=== PATIENT | male | born 1945 | race Two or more races ===

== ENCOUNTER 2019-03-16 10:15 | Observation (INO) | payer OTHER, MEDICAID ==
[2019-03-16] VITALS (21 sets, daily range): BP systolic 133–171; BP diastolic 78–97; PULSE 60–92; RESP 16–22; Ht 165.1 cm; Wt 65.1 kg
[~2019-03-16] VITALS: Ht 165.1 cm; Wt 65.1 kg
[~2019-03-16 10:15] MED LIST: BENA1TAB2 PO; CEFAZOLIN 2 GM/50 ML (PMX) 50 ML IVPB SCH; PROSTATE MEDS; SITA1TAB3 PO
[2019-03-16] MEDS ORDERED: SIMV10TA PO (10:39)
[2019-03-16] MEDS ORDERED: TAMS-14 PO (10:39)
[2019-03-16] MEDS ORDERED: BENA10TA4 PO (10:40)
[2019-03-16] MEDS ORDERED: SITA1TAB PO (10:40)
--- NOTE | 2019-03-16 11:30 | PREAC ---
Date/Time of Note Date/Time of Note DATE: 03/16/19 TIME: 11:29 Anesthesia Eval and Record Evaluation Time Pre-Procedure Interview DATE: 03/16/19 TIME: 11:29 Age 73 Sex male NPO: 8 hrs Preoperative diagnosis BPH Planned procedure TURP Past Medical History Past Medical History: Includes Cardio: HTN, Dyslipidemia Endo: Diabetes Surgery & Anesthesia Issues No known issue Meds Anticoagulation: No Beta Cecy within 24 hr: No Reason Beta Cecy not given: Pt. not on B-Cecy Reported Medications Benazepril Hcl* (Benazepril Hcl*) 10 Mg Tablet, 10 MG PO DAILY, #30 TAB 03/16/19 Sitagliptin Phos/Metformin HCl (Janumet 50-500 mg Tablet) 1 Each Tablet, 1 EACH PO QAM, TAB 03/16/19 Simvastatin* (Zocor*) 10 Mg Tablet, 10 MG PO QHS, #30 TAB 03/16/19 Tamsulosin Hcl* (Flomax*) 0.4 Mg Cap.er.24h, 0.4 MG PO DAILY, CAP 03/16/19 Discontinued Reported Medications [Prostate Meds] No Conflict Check 04/27/13 Sitagliptin Phos-Metformin Hcl (Janumet) 1 Tab Tablet, 1 TAB PO DAILY 04/27/13 Benazepril/Hydrochlorothiazide (Benazepril-Hctz 10-12.5 Mg Tab) 1 Tab Tablet, 1 TAB PO DAILY 04/27/13 Current Medications Cefazolin Sodium/ Dextrose 50 ml @ 100 mls/hr PREOP IVPB ; Start 03/16/19 at 06:00; Stop 03/16/19 at 16:00 Meds reviewed: Yes Allergies Coded Allergies: No Known Drug Allergies (Verified Allergy, Unknown, 03/16/19) Allergies Reviewed: Yes Labs/Studies Labs Reviewed: Reviewed by anesthesiologist test: N/A Pre-procedure Exam Last vitals Vital Signs Date Temp Pulse Resp B/P (MAP) Pulse Ox O2 O2 Flow FiO2 Time Delivery Rate 03/16/19 97.2 60 16 148/80 99 Room Air 11:01 (102) Airway: Adequate mouth opening Mallampati: Mallampati I Teeth: Normal Lung: Normal Heart: Normal ASA Physical Status ASA physical status: 2 Emergency: None Planned Anesthetic General/MAC: ETT Planned Pain Management Parenteral pain med Pre-operative Attestations Prior to commencing anesthesia and surgery, the patient was re-evaluated, there was verification of: *The patient's identity *The results of appropriate recent lab work and preoperative vital signs *The above evaluation not changing prior to induction *Anesthetic plan, risk benefits, alternative and complications discussed with patient/family; questions answered; patient/family understands, accepts and wishes to proceed. LAUREL MUHAMMAD MD March 16, 2019 11:30
--- NOTE | 2019-03-16 12:28 | HPN ---
Date/Time of Note Date/Time of Note DATE: 03/16/19 TIME: 12:28 Interval H&P Admission Note Pt. seen H&P reviewed: No system changes CAPRI RAMIREZ MD March 16, 2019 12:28
[2019-03-16] MEDS ORDERED: FENTAnyl 50 MCG/ML VIAL IV PRN ×3 (12:30)
[2019-03-16] MEDS ORDERED: LABETALOL HCL 20MG INJ IV PRN (12:30)
[2019-03-16] MEDS ORDERED: MEPERIDINE 25 MG INJ IV PRN (12:30)
[2019-03-16] MEDS ORDERED: HYDROmorphONE 1 MG/5 ML IV SYRINGE IV PRN ×3 (12:30)
[2019-03-16] MEDS ORDERED: EPHEDrine 25 MG/5 ML SYG ONE (12:30)
[2019-03-16] MEDS ORDERED: hydrALAzine 20 MG INJ IV PRN (12:30)
[2019-03-16] MEDS ORDERED: METOCLOPRAMIDE 10 MG INJ IV PRN (12:30)
[2019-03-16] MEDS ORDERED: EPHEDrine 25 MG/5 ML SYG IV PRN (12:30)
[2019-03-16] MEDS ORDERED: MIDAZOLAM 1 MG/ML 2 ML INJ IV PRN (12:30)
[2019-03-16] MEDS ORDERED: CEFAZOLIN 1 GM INJ ONE (12:30)
[2019-03-16] MEDS ORDERED: ONDANSETRON 4 MG INJ IV PRN (12:30)
[2019-03-16] MEDS ORDERED: DIPHENHYDRAMINE 50 MG INJ IV PRN (12:30)
[2019-03-16] MEDS ORDERED: OXYCODONE/ACETAMINOPHEN (5/325) TAB PO PRN ×2 (12:30)
[2019-03-16] MEDS ORDERED: SEVOFLURANE 15 MIN ONE (12:30)
[2019-03-16] MEDS ORDERED: LIDOCAINE 2% (SDV) 5 ML INJ ONE (12:32)
[2019-03-16] MEDS ORDERED: MEPERIDINE 100 MG INJ ONE (12:32)
[2019-03-16] MEDS ORDERED: SUCCINYLCHOLINE CHLORIDE 100 MG/5 ML SYG IV ONE (12:32)
[2019-03-16] MEDS ORDERED: ROCURONIUM 50 MG INJ ONE (12:32)
[2019-03-16] MEDS ORDERED: GLYCOPYRROLATE 0.4 MG INJ ONE (12:32)
[2019-03-16] MEDS ORDERED: PROPOFOL 20 ML ONE (12:32)
[2019-03-16] MEDS ORDERED: NEOSTIGMINE 3 MG/3 ML SYRINGE ONE (12:32)
--- NOTE | 2019-03-16 15:02 | OPR ---
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 Procedure Description The patient was brought to the operating room and general anesthesia was induced. Timeout was done, the patient was identified by his name, birthdate and the procedure. The patient was given 2 g of Ancef IV at the start of the procedure. The genital area was then prepped and draped in the usual sterile manner. Cystoscopy was done with a 22 Kosovan cystoscope and it showed prostatic enlargement with obstruction. The bladder was trabeculated. There was no bladder tumors or stones. The cystoscope was then removed and the urethra was dilated with the [place] dilators up to #30 Kosovan. The 26 Kosovan bipolar resectoscope sheath was then introduced under direct vision through the penile urethra all the way to the bladder. Then the resection of the prostate was st arted. First the median lobe was resected then the right lateral lobe then the left lateral lobe and finally the anterior lobe as well as apical tissue. All the bleeders were electrocoagulated. All the prostatic chips were evacuated. Good hemostasis was obtained. The ureteral orifices as well as external sphincter were intact and safeguarded during the whole procedure. At the end of the procedure the resectoscope was removed and #24 Kosovan three-way Patino catheter was inserted into the bladder. The balloon was inflated with 60 mL of sterile water. The catheter was connected to a drainage bag and continuous bladder irrigation was started in the operating room with normal saline. The patient was transferred to the recovery room in stable and satisfactory condition. CAPRI RAMIREZ MD March 16, 2019 15:02
--- NOTE | 2019-03-16 16:03 | HP ---
Date/Time of Note Date/Time of Note DATE: 03/16/19 TIME: 15:57 Assessment/Plan VTE Prophylaxis SCD applied (from Nsg): Yes Pharmacological prophylaxis: NA/contraindicated Pharm contraindication: low risk/ambulating Lines/Catheters IV Catheter Type (from Nrsg): Peripheral IV Urinary Cath still in place: Yes (3-WAY CONTINUES BLADDER IRRIGATION) Reason Cath still needed: other (indicate) (continuous bladder irrigation) Assessment/Plan Assessment/Plan 73 yo man history of HTN, IDDM, prostate cancer presents postoperatively after T URP. #Obstructive uropathy #Prostate cancer - Now s/p TURP - Admit for continuous bladder irrigation - Outpatient followup #HTN - Cont home benazepril #IDDM - Hold home sitagliptin-metformin - sliding scale insulin #Tobacco use - Nicotine patch while inpatient. DVT: SCDs GI: None Results 24hrs Laboratory Tests Test 03/16/19 10:49 Bedside Glucose 100 HPI/ROS Admit Date/Time Admit Date/Time Mar 16 2019 Hx of Present Illness Mr. Girard is a 73 yo man with HTN and DM2 admitted after elective TURP by Dr. Oconnor. The patient has history of prostate cancer with increasingly worsening obstructive urinary symptoms. He was scheduled for TURP today which proceeded uneventfully. Postoperative he is awake and doing well. He is on continuous bladder irrigation. ROS 12 point review of systems negative except per HPI. PMH/Family/Social Past Medical History Diabetes, hypertension, prostate cancer. Medications Current Medications Cefazolin Sodium/ Dextrose 50 ml @ 100 mls/hr PREOP IVPB ; Start 03/16/19 at 06:00; Stop 03/16/19 at 16:00 Hydromorphone HCl (Dilaudid) 0.2 mg PACU PRN IV MILD PAIN 1-3; Start 03/16/19 at 12:30; Stop 03/16/19 at 18:00 Hydromorphone HCl (Dilaudid) 0.4 mg PACU PRN IV MOD PAIN 4-6; Start 03/16/19 at 12:30; Stop 03/16/19 at 18:00 Hydromorphone HCl (Dilaudid) 0.6 mg PACU PRN IV SEVERE PAIN 7-10; Start 03/16/19 at 12:30; Stop 03/16/19 at 18:00 Fentanyl (Sublimaze) 25 mcg PACU ORDER PRN IV MILD PAIN 1-3; Start 03/16/19 at 12:30; Stop 03/16/19 at 18:00 Fentanyl (Sublimaze) 50 mcg PACU ORDER PRN IV MOD PAIN 4-6; Start 03/16/19 at 12:30; Stop 03/16/19 at 18:00 Fentanyl (Sublimaze) 75 mcg PACU ORDER PRN IV SEVERE PAIN 7-10; Start 03/16/19 at 12:30; Stop 03/16/19 at 18:00 Oxycodone/ Acetaminophen (Percocet (5/ 325)) 1 tab PACU ORDER PRN PO .PAIN 1-5; Start 03/16/19 at 12:30; Stop 03/16/19 at 18:00 Oxycodone/ Acetaminophen (Percocet (5/ 325)) 2 tab PACU ORDER PRN PO .PAIN 6-10; Start 03/16/19 at 12:30; Stop 03/16/19 at 18:00 Ondansetron HCl (Zofran Inj) 4 mg PACU ORDER PRN IV NAUSEA/VOMITING; Start 03/16/19 at 12:30; Stop 03/16/19 at 18:00 Metoclopramide HCl (Reglan) 10 mg PACU ORDER PRN IV NAUSEA/VOMITING; Start 03/16/19 at 12:30; Stop 03/16/19 at 18:00 Labetalol HCl (Labetalol) 5 mg PACU ORDER PRN IV HIGH BLOOD PRESSURE; Start 03/16/19 at 12:30; Stop 03/16/19 at 18:00 Hydralazine HCl (Apresoline) 5 mg PACU ORDER PRN IV HIGH BLOOD PRESSURE; Start 03/16/19 at 12:30; Stop 03/16/19 at 18:00 Ephedrine Sulfate 5 mg PACU ORDER PRN IV BLOOD PRESSURE SUPPORT; Start 03/16/19 at 12:30; Stop 03/16/19 at 18:00 Meperidine HCl (Demerol) 25 mg PACU ORDER PRN IV .RIGORS; Start 03/16/19 at 12:30; Stop 03/16/19 at 18:00 Diphenhydramine HCl (Benadryl) 25 mg PACU ORDER PRN IV .PRURITUS; Start 03/16/19 at 12:30; Stop 03/16/19 at 18:00 Midazolam HCl (Versed) 0.5 mg PACU ORDER PRN IV .ANXIETY; Start 03/16/19 at 12:30; Stop 03/16/19 at 18:00 Sodium Chloride 1,000 ml @ 50 mls/hr Q20H IV ; Start 03/16/19 at 15:00 Ciprofloxacin (Cipro) 500 mg BID@06,18 PO ; Start 03/16/19 at 18:00 Benazepril HCl (Lotensin) 10 mg DAILY PO ; Start 03/17/19 at 09:00; Status UNV Tamsulosin HCl (Flomax) 0.4 mg DAILY PO ; Start 03/17/19 at 09:00; Status UNV Miscellaneous Information 10 mg QHS PO ; Start 03/16/19 at 21:00; Status UNV Coded Allergies: No Known Drug Allergies (Verified Allergy, Unknown, 03/16/19) Past Surgical History Past Surgical Hx: no surgical history Social History Alcohol Use: rarely Smoking Status: Current every day smoker (smokes 5 cigs per day) Drug Use: none Exam/Review of Systems Vital Signs Vitals Vital Signs Date Temp Pulse Resp B/P (MAP) Pulse Ox O2 O2 Flow FiO2 Time Delivery Rate 03/16/19 70 19 139/80 96 Room Air 15:31 (99) 03/16/19 97.8 15:00 03/16/19 6.0 15:00 Exam Exam Gen: Well appearing elderly man lying in gurney no acute distress Eyes: PERRL, no icterus HEENT: Moist mucous membranes, clear oropharynx Neck: No lymphadenopathy Card: Regular rate and rhythm, Pulm: Clear to auscultation, no wheezes. Abd: Soft, nontender, nondistended. Ext: No cyanosis/clubbing/edema Skin: Dense confluence of moles on face, neck, upper shoulders. : Continuous bladder irrigation with pink output. ZULEMA VARGAS MD March 16, 2019 16:03
[2019-03-16] MEDS ORDERED: NACL 0.9% 3 ML SYG IV SCH (16:30)
[2019-03-16] MEDS: SOD CHLORIDE 0.45% 1,000 ML IV SCH (16:56)
[2019-03-16] MEDS ORDERED: HYDROCODONE/APAP (5/325) TAB PO PRN (17:00)
[2019-03-16] MEDS ORDERED: morphine 2 MG INJ IV PRN (17:00)
--- NOTE | 2019-03-16 17:25 | PAC ---
Date/Time of Note Date/Time of Note DATE: 03/16/19 TIME: 17:24 Post-Anesthesia Notes Post-Anesthesia Note Last documented vital signs Vital Signs Date Temp Pulse Resp B/P (MAP) Pulse Ox O2 O2 Flow FiO2 Time Delivery Rate 03/16/19 74 20 171/91 17:00 (117) 03/16/19 Room Air 16:45 03/16/19 97 15:51 03/16/19 97.8 15:00 03/16/19 6.0 15:00 Activity: WNL Respiratory function: WNL Cardiovascular function: WNL Mental status: Baseline Pain reasonably controlled: Yes Hydration appropriate: Yes Nausea/Vomiting absent: Yes Comments BT: 98.2 LAUREL MUHAMMAD MD March 16, 2019 17:25
[2019-03-16] MEDS ORDERED: GLUCAGON 1 MG INJ IM PRN (17:30)
[2019-03-16] MEDS ORDERED: DEXTROSE 50% 50 ML SYRINGE IV PRN ×2 (17:30)
[2019-03-16] MEDS ORDERED: GLUCOSE GEL 15 GRAM TUBE PO PRN ×2 (17:30)
[2019-03-16] MEDS ORDERED: GLUCOSE GEL 15 GRAM TUBE BUCCAL PRN (17:30)
[2019-03-16] MEDS: CIPROFLOXACIN 500 MG TAB PO SCH (17:39)
[2019-03-16] MEDS: INSULIN ASPART [NOVOLOG] 3 ML PEN SC SCH ×2 (17:55→21:00)
[2019-03-16] MEDS ORDERED: ATORVASTATIN 10 MG TAB PO SCH (21:00)
[2019-03-16] MEDS ORDERED: TAMSULOSIN (SR) 0.4 MG CAP PO SCH (21:00)
[2019-03-16] MEDS: NICOTINE (7 MG/24 HR) PATCH TRANSDERM SCH (22:30)
[2019-03-17 00:28] VITALS: BP 119/69; PULSE 74; RESP 18
[2019-03-17] MEDS ORDERED: ACCU-CHEK XX SCH (02:00)
[2019-03-17] MEDS: CIPROFLOXACIN 500 MG TAB PO SCH (05:10)
[2019-03-17 07:35] VITALS: BP 121/64; PULSE 82; RESP 19
[2019-03-17] MEDS: INSULIN ASPART [NOVOLOG] 3 ML PEN SC SCH ×2 (07:50→12:48)
[2019-03-17] MEDS ORDERED: BENAZEPRIL 10 MG TAB PO SCH (09:00)
[2019-03-17] MEDS: NICOTINE (7 MG/24 HR) PATCH TRANSDERM SCH (09:03)
[2019-03-17] MEDS: SOD CHLORIDE 0.45% 1,000 ML IV SCH (12:50)
--- NOTE | 2019-03-17 14:33 | PDOCDIS ---
Discharge Instructions DIAGNOSIS Discharge Diagnosis Prostate cancer s/p TURP CONDITION [id number] Patient Condition: [id number] Good HOME CARE INSTRUCTIONS: [id number] Special Diet: [id number] Controlled carbohydrate diet ACTIVITY: [id number] Activity Restrictions: Bucut0h Slowly Increase Activity Rest between Activity Avoid heavy lifting No Sexual Activity Do not operate Machinery Do not operate Power Tool Avoid Heavy Housework [id number] Bathing Restrictions: [id number] Shower FOLLOW UP/APPOINTMENTS Follow-up Plan 1. Take all medications as prescribed. 2. See Dr. Oconnor in clinic as scheduled. ZULEMA VARGAS MD March 17, 2019 14:33
--- NOTE | 2019-03-17 17:41 | DS ---
Date/Time of Note Date/Time of Note DATE: 03/17/19 TIME: 17:40 Discharge Summary Admission/Discharge Info Admit Date/Time March 16, 2019 at 14:54 Discharge Date/Time March 17, 2019 at 16:05 Discharge Diagnosis Prostate cancer s/p TURP Patient Condition: Good Consults Dr. Oconnor, urology Procedures TURP 03/16 Hx of Present Illness Mr. Girard is a 73 yo man with HTN and DM2 admitted after elective TURP by Dr. Oconnor. The patient has history of prostate cancer with increasingly worsening obstructive urinary symptoms. He was scheduled for TURP today which proceeded uneventfully. Postoperative he is awake and doing well. He is on continuous bladder irrigation. Hospital Course Patient had an uneventful postoperative course. Pain adequatelly controlled. Got continuous bladder irrigation overnight. In the morning he was cleared by Dr. Oconnor for discharge. Home Meds Reported Medications Benazepril Hcl* (Benazepril Hcl*) 10 Mg Tablet, 10 MG PO DAILY, #30 TAB 03/16/19 Sitagliptin Phos/Metformin HCl (Janumet 50-500 mg Tablet) 1 Each Tablet, 1 EACH PO QAM, TAB 03/16/19 Simvastatin* (Zocor*) 10 Mg Tablet, 10 MG PO QHS, #30 TAB 03/16/19 Tamsulosin Hcl* (Flomax*) 0.4 Mg Cap.er.24h, 0.4 MG PO DAILY, CAP 03/16/19 Discontinued Reported Medications [Prostate Meds] No Conflict Check 04/27/13 Sitagliptin Phos-Metformin Hcl (Janumet) 1 Tab Tablet, 1 TAB PO DAILY 04/27/13 Benazepril/Hydrochlorothiazide (Benazepril-Hctz 10-12.5 Mg Tab) 1 Tab Tablet, 1 TAB PO DAILY 04/27/13 Follow-up Plan 1. Take all medications as prescribed. 2. See Dr. Oconnor in clinic as scheduled. Primary Care Provider Dorcas Arriaga MD Time spent on discharge: > 30 minutes Pending Labs Laboratory Tests Test 03/16/19 17:59 03/16/19 20:45 03/17/19 04:28 03/17/19 07:12 Bedside 102 161 Glucose mg/dL (70-220) mg/dL (70-220) White Blood 9.2 Count 10^3/ul (4.8-1 0.8) Red Blood 4.67 Count 10^6/ul (4.70- 6.10) Hemoglobin 13.8 g/dl (14.0-18. 0) Hematocrit 40.7 % (42.0-52.0) Mean 87.2 Corpuscular fl (82.0-101.0 Volume ) Mean 29.6 Corpuscular pg (29.0-33.0) Hemoglobin Mean 33.9 Corpuscular g/dl (32.0-37. Hemoglobin Conc 0) ent Red Cell 12.6 Distribution % (11.5-14.5) Width Platelet Count 128 10^3/UL (140-4 15) Mean Platelet 11.8 Volume fl (7.4-10.4) Immature 0.300 Granulocytes % % (0.001-0.429 ) Neutrophils % 84.4 % (39.0-77.0) Lymphocytes % 5.8 % (15.0-51.0) Monocytes % 8.0 % (0.0-11.0) Eosinophils % 1.1 % (0.0-7.0) Basophils % 0.4 % (0.0-2.0) Nucleated Red 0.0 Blood Cells % /100WBC (0.0-0 .0) Immature 0.030 Granulocytes # 10^3/ul (0.0-0 .031) Neutrophils # 7.8 10^3/ul (1.6-7 .5) Lymphocytes # 0.5 10^3/ul (0.8-2 .9) Monocytes # 0.7 10^3/ul (0.3-0 .9) Eosinophils # 0.1 10^3/ul (0.0-0 .5) Basophils # 0.0 10^3/ul (0.0-0 .1) Nucleated Red 0.0 Blood Cells # 10^3/ul (0.0-0 .0) Hemoglobin A1c 5.6 % (0-5.9) Lab Scanned REFERENCE Report LAB [id number] Test 03/17/19 08:27 03/17/19 12:47 03/17/19 14:59 Bedside 110 124 Glucose mg/dL (70-220) mg/dL (70-220) Sodium Level 139 mmol/L (135-14 4) Potassium 4.0 Level mmol/L (3.5-5. 1) Chloride Level 107 mmol/L (97-110 ) Carbon Dioxide 25 Level mmol/L (21-31) Anion Gap 7 (5-13) Blood Urea 16 Nitrogen mg/dl (7-20) Creatinine 1.04 mg/dl (0.61-1. 24) Est Glomerular mL/min (>60) Filtrat Rate mL/min Glucose Level 159 mg/dl (70-220) Calcium Level 8.8 mg/dl (8.4-10. 2) ZULEMA VARGAS MD March 17, 2019 17:41
== END 2019-03-17 16:05 | disposition home or self-care (01) ==
LOC: SDS 10:15 → MS1 14:54 → INTOOBSV 14:54 → SUATTDRO 15:05
PROVIDERS: ADMIT Urology; ATTEND Internal Medicine
DX: N40.1 Benign prostatic hyperplasia with lower urinary tract symptoms (principal); N13.8 Other obstructive and reflux uropathy; I10 Essential (primary) hypertension; E11.9 Type 2 diabetes mellitus without complications; F17.210 Nicotine dependence, cigarettes, uncomplicated
CPT/HCPCS: 52601; 80048; 82962; 83036; 85025; 87086; 88309; G0378; J1815; J2175; J2710; J0690